=== PATIENT | female | born 1990 | race Two or more races ===

== ENCOUNTER 2020-06-02 21:51 | Emergency (ER) | payer BC, OTHER ==
[~2020-06-02] VITALS: Ht 154.9 cm; Wt 68.0 kg
[2020-06-02] MEDS ORDERED: KETOROLAC TROMETH 60MG/2ML VIAL IM ONE (23:45)
[2020-06-03 01:12] VITALS: BP 144/87
== END 2020-06-03 01:19 | disposition home or self-care (01) ==
LOC: ER 21:54
DX: S43.402A Unspecified sprain of left shoulder joint, initial encounter (principal); J45.909 Unspecified asthma, uncomplicated; W18.30XA Fall on same level, unspecified, initial encounter; Y93.89 Activity, other specified; Y92.89 Other specified places as the place of occurrence of the external cause; Y99.8 Other external cause status
CPT/HCPCS: 73030; 96372; 99283; J1885

== ENCOUNTER 2020-10-09 11:37 | Emergency (ER) | payer BC ==
[~2020-10-09] VITALS: Ht 157.5 cm; Wt 65.8 kg
[2020-10-09] MEDS ORDERED: KETOROLAC TROMETH 30 MG/ML 1ML VIAL IV ONE (14:00)
[2020-10-09] MEDS ORDERED: CLINDAMYCIN 600MG IV 50 ML IV ONE (14:00)
[2020-10-09 15:19] VITALS: BP 107/70
== END 2020-10-09 14:59 | disposition home or self-care (01) ==
LOC: ER 11:37
DX: K08.89 Other specified disorders of teeth and supporting structures (principal)
CPT/HCPCS: 96365; 96375; 99284; J1885; J3490

== ENCOUNTER 2021-11-22 06:49 | Emergency (ER) | payer SELFPAY ==
[~2021-11-22] VITALS: Ht 157.5 cm; Wt 65.8 kg
[2021-11-22 07:11] VITALS: BP 140/77
[2021-11-22] MEDS ORDERED: LIDOCAINE 1% HCL (LOCAL ANESTH.) INJ 20ML MDV IJ ONE (07:30)
== END 2021-11-22 07:44 | disposition home or self-care (01) ==
LOC: ER 06:49
DX: L03.011 Cellulitis of right finger (principal); J45.909 Unspecified asthma, uncomplicated
CPT/HCPCS: 10060; 99283; J2001; 26010